=== PATIENT | female | born 1985 | race African-American/Black ===

== ENCOUNTER 2019-09-17 17:03 | Emergency (ER) | payer MEDICAID ==
[~2019-09-17] VITALS: Ht 165.1 cm; Wt 75.0 kg
[2019-09-17 17:11] VITALS: BP 155/97
== END 2019-09-17 18:32 | disposition home or self-care (01) ==
LOC: ER 17:03
DX: M54.9 Dorsalgia, unspecified (principal); Z53.21 Procedure and treatment not carried out due to patient leaving prior to being seen by health care provider